=== PATIENT | male | born 1960 | race Caucasian/White ===

== ENCOUNTER → 2020-07-29 10:53 | Outpatient (BNVA) | payer MEDICARE, MEDICAID, SELFPAY | PROVIDERS: Visit Provider Nurse Practitioner | DX: E11.65 Type 2 diabetes mellitus with hyperglycemia (principal) | CPT/HCPCS: 80053; 80061; 81000; 82043; 83036 ==

== ENCOUNTER 2020-12-04 11:12 | Emergency (ER) | payer MEDICARE, MEDICAID, SELFPAY ==
[2020-12-04 11:15] VITALS: BP 151/77; PULSE 70; RESP 18; TEMP 36.8; O2SAT 96; BMI 27.6
--- NOTE | 2020-12-04 11:17 | XR_ITS ---
WS: [id number] Left knee, 3 views, 12/04/2020 Clinical Data: injury Comparison: Left knee, 03/28/2011. Findings: No fractures or dislocations are seen. The joint spaces are normal. The patella is intact. The soft t issues are unremarkable. There is a spur of the anterior superior patella. XR/XR knee LT 3V* [id number] Impression: Anterior superior left patellar spur.
[2020-12-04 11:20] VITALS: BP 151/77; PULSE 62; RESP 16; O2SAT 97
--- NOTE | 2020-12-04 11:30 | PC.NURSE ---
XR performed in VF area, pt placed back in WR.
--- NOTE | 2020-12-04 11:32 | ED_ITS ---
HPI - Extremity Injury (Lower) General: Chief Complaint: Extremity Injury, Lower Stated Complaint: L KNEE PAIN/INJURY Time Seen by Provider: 12/04/20 11:31 Source: patient Mode of arrival: ambulatory Limitations: no limitations History of Present Illness: HPI Narrative: Patient is a 60-year-old male who presents to ED today for evaluation of his left knee pain. Patient tells me approximately 4 days ago he twisted and fell onto the knee. He has experienced pain in the joint since. Patient has been ambulatory with a mild limp. He has no other complaints at this time. No other injury sustained during the fall. He has not noticed any swelling or color/temperature changes to the extremity. MD complaint: knee injury Onset (ago): day(s) Place: home Severity: mild Relieving factors: immobilization Exacerbating factors: weight bearing, movement and palpation Context: fall, direct blow and other (twisting) Associated symptoms: Reports no associated symptoms Other symptoms: none Review of Systems Musc: Reports: joint pain (L knee); Denies: joint swelling Neuro: Denies: numbness in extremities or sensory changes PFS ED PFSH: Medical History (Updated 12/04/20 @ 11:51 by ROMMEL Beckwith) COPD (chronic obstructive pulmonary disease) Insomnia Moderate COPD (chronic obstructive pulmonary disease) Neuropathy Personal history of nicotine dependence Type 2 diabetes mellitus with hyperglycemia Surgical History (Updated 07/29/20 @ 10:52 by LAURA Vale) 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, 2018 History of knee surgery Right 2000 and 2009 Family History Other Dementia Diabetes Hypertension Stroke Denies family history of Bleeding disorder Cancer Social History Smoking and tobacco status: current every day smoker Second hand smoke exposure: Yes Smoking risk assessment/counseling performed?: Yes Alcohol intake: never Desire information about alcohol rehabilitation?: No Counseling given: No Desire information about substance/drug rehabilitation?: No Counseling given: No Adopted: No Caregiver/support person: No Lives independently: Yes Household members: spouse Housing: House Marital status: Number of children: 2 service: No Current occupational status: retired and disabled History of recent travel: No Current gender identity: Male Physical Exam Const: COMMON NORMALS: no acute distress, average body habitus, patient oriented x3, no limitations, healthy appearing, alert and well nourished Extremity: GENERAL: Yes normal exam except as noted OTHER: TTP L lateral joint line; no laxity noted; no effusion; NV intact; no swelling to joint or extremity noted; no redness/warmth; no calf tenderness Neuro: COMMON NORMALS: patient oriented x3 SENSORIUM/ORIENTATION: Yes alert Course Vital Signs: Vital signs: Vital Signs Temperature 98.2 F 12/04/20 11:15 Pulse Rate 62 12/04/20 11:20 Respiratory Rate 16 12/04/20 11:20 Blood Pressure 151/77 12/04/20 11:20 Pulse Oximetry 97 12/04/20 11:20 MDM - Extremity Injury (Lower) Imaging Data^: XR L knee: Radiologist's impression: [address] [address] XRay Report Signed Patient: Walt Daugherty Unit #: [id number] : 1960 Age/Sex: 60 / M ADM Date: 12/04/20 Loc: ER Room/Bed: Attending Dr: Ordering Provider/Ordering MD: Lise Miramontes Date of Service: 12/04/20 Procedure(s): XR knee LT 3V* [id number] Accession Number(s): [id number] Report Number: [id number] WS: [id number] Left knee, 3 views, 12/04/2020 Clinical Data: injury Comparison: Left knee, 03/28/2011. Findings: No fractures or dislocations are seen. The joint spaces are normal. The patella is intact. The soft tissues are unremarkable. There is a spur of the anterior superior patella. XR/XR knee LT 3V* [id number] Impression: Anterior superior left patellar spur. Dictated By: Micki Menchaca MD Signed By: Micki Menchaca MD Signed Date/Time: 12/04/20 1137 DD/ 1135 Discharge Plan Discharge Patient Disposition: Home Clinical Impression: Left knee injury Qualifiers: Encounter type: initial encounter Qualified Code(s): S89.92XA - Unspecified injury of left lower leg, initial encounter Condition: Stable Prescriptions: No Action albuterol sulfate [ProAir HFA] 90 mcg/actuation HFA aerosol inhaler 2 puff INHALATION QID Qty: 18 RF: 2 gabapentin 300 mg capsule 300 mg PO BID Qty: 60 RF: 2 Spiriva with HandiHaler 18 mcg capsule, w/inhalation device 1 cap INHALATION DAILY Qty: 30 RF: 2 trazodone 50 mg tablet 50 mg PO DAILY Qty: 30 RF: 2 glipizide 5 mg tablet extended release 24hr 5 mg PO DAILY Qty: 30 RF: 0 metformin 1,000 mg tablet 1,000 mg PO BID Qty: 60 RF: 0 pravastatin 40 mg tablet 40 mg PO DAILY Qty: 30 RF: 0 Discharge Orders: Discharge ED (Routine); Ordered 12/04/20 Ordered By: Lise Miramontes Referrals: Ventura Matt, MADELINC [Primary Care Provider] - Activity Restrictions/Additional Instructions: As discussed weight bearing as tolerated. You may use [id number] Tylenol as needed for your pain. Please follow-up with primary care in the next 1 to 2 weeks for continued pain for re-evaluation. Coding Level of Care Code ED Hide And Skin Fleshing Machine Operator for Nagi Morris
== END 2020-12-04 12:01 | disposition home or self-care (01) ==
PROVIDERS: Emergency Provider Physician Assistant; PCP Nurse Practitioner
DX: S89.92XA Unspecified injury of left lower leg, initial encounter (principal); W19.XXXA Unspecified fall, initial encounter; J44.9 Chronic obstructive pulmonary disease, unspecified; E11.40 Type 2 diabetes mellitus with diabetic neuropathy, unspecified; F17.210 Nicotine dependence, cigarettes, uncomplicated
CPT/HCPCS: 12345; 73562; 99282

== ENCOUNTER → 2020-12-17 14:38 | Outpatient (BNVA) | payer MEDICARE, MEDICAID, SELFPAY | PROVIDERS: PCP Nurse Practitioner; Visit Provider Nurse Practitioner | DX: M25.512 Pain in left shoulder (principal); E11.65 Type 2 diabetes mellitus with hyperglycemia; J44.9 Chronic obstructive pulmonary disease, unspecified; G62.9 Polyneuropathy, unspecified; G47.00 Insomnia, unspecified | CPT/HCPCS: 73030; 80053; 81000; 83036 ==

== ENCOUNTER → 2021-12-23 10:22 | Outpatient (BNVA) | payer MEDICARE, MEDICAID, SELFPAY | PROVIDERS: PCP Nurse Practitioner; Visit Provider Nurse Practitioner | DX: R63.4 Abnormal weight loss (principal); J44.9 Chronic obstructive pulmonary disease, unspecified; E11.65 Type 2 diabetes mellitus with hyperglycemia; Z12.5 Encounter for screening for malignant neoplasm of prostate | CPT/HCPCS: 80053; 80061; 81000; 82607; 83036; 85025; G0103 ==

== ENCOUNTER 2022-01-17 09:07 | Outpatient (CLI) | payer MEDICARE, MEDICAID, SELFPAY ==
--- NOTE | 2022-01-17 09:15 | CT_ITS ---
WS: [id number] CT CHEST, ABDOMEN, AND PELVIS TECHNIQUE: Contrast-enhanced CT of the chest, abdomen, and pelvis with coronal and sagittal reformatt ed images. CLINICAL INFORMATION: R63.4 - Abnormal weight loss COMPARISON: CT 4 24,013 DLP: 1261.[address] scans at [facility] use at least one of these dose optimization techniques: automated e xposure control; mA and/or kV adjustment per patient size (includes targeted exams where dose is matc hed to clinical indication); or iterative reconstruction. CT CHEST: Mild chronic emphysematous changes. No acute pulmonary infiltrates. No focal pneumonia or pleural flu id. Subsegmental atelectasis RIGHT upper lobe. Normal caliber thoracic aorta. Proximal main pulmonary arteries are normal. No mediastinal or hilar l ymphadenopathy. Calcified LEFT hilar lymph nodes. No axillary lymphadenopathy. Hypertrophic changes t horacic spine. 4 mm noncalcified nodule LEFT upper lobe. This is unchanged since 2013. CT ABDOMEN AND PELVIS: Grade 1 anterolisthesis L5 on S1 with chronic spondylolysis. Mild diffuse fatty infiltration of the l iver. Normal portal vein and splenic vein. Normal gallbladder. Normal spleen. Normal GE junction. Adr enal glands are normal. Normal renal parenchymal enhancement. No hydronephrosis. Mild fatty atrophy o f the pancreas. Tiny fat-containing umbilical hernia.Shotty periaortic and retroperitoneal lymph node s not pathologically enlarged. A few prominent inguinal lymph nodes with preservation of the fatty hi lum. Normal celiac and SMA. Normal caliber abdominal aorta. Enlarged prostate with calcification measuring 4.9 CM. Small cystocele. Normal sigmoid colon. No evidence of high-grade small or large bowel obstru ction. Mild disc space narrowing L5-S1. Fat-containing LEFT inguinal hernia. CT/CT chest abd pel w con* IMPRESSION: 1. No suspicious findings in the chest. 2. Mild diffuse fatty infiltration of the liver. 3. Normal caliber abdominal aorta. 4. Prostate enlargement measuring 4.9 cm with thickening of the seminal vesicl es. Recommend correlation PSA. 5. Shotty periaortic and retroperitoneal lymph nodes not pathologically enlarg ed. A few prominent inguinal lymph nodes with preservation of the fatty hilum. 6. Grade 1 anterolisthesis L5 on S1 with chronic spondylolysis.
--- NOTE | 2022-01-17 09:31 | CT_ITS ---
WS: [id number] CT HEAD TECHNIQUE: Noncontrast CT of the head obtained from the skullbase to the vertex. CLINICAL INFORMATION: R63.4 - Abnormal weight loss COMPARISON: None. DLP: 889.[address] scans at [facility] use at least one of these dose optimization techniques: automated e xposure control; mA and/or kV adjustment per patient size (includes targeted exams where dose is matc hed to clinical indication); or iterative reconstruction. FINDINGS: No evidence of intracranial hemorrhage or mass effect. Ventricular system and basal cisterns are baldwin nt. Mild small vessel changes with mild parenchymal volume loss. Benign basal calcifications. Chronic lacunar infarcts or prominent perivascular spaces RIGHT basal ganglia. No extra-axial fluid collecti ons. No evidence of mass or mass effect. Paranasal sinuses and mastoid air cells are well aerated. .Normal visualized soft tissues. CT/CT head wo con* [id number] IMPRESSION: 1. No evidence of intracranial hemorrhage or mass effect. 2. Mild small vessel changes. Mild parenchymal volume loss. 3. No acute intracranial findings.
[2022-01-17] MEDS: iohexol 300 mg/mL 50 mL Btl PO (10:26)
[2022-01-17] MEDS: iodixanol 320 mg/mL 100mL Btl IV (11:16)
== END 2022-01-17 09:08 | disposition home or self-care (01) ==
PROVIDERS: PCP Nurse Practitioner; Visit Provider Nurse Practitioner
DX: M47.897 Other spondylosis, lumbosacral region (principal); N40.0 Benign prostatic hyperplasia without lower urinary tract symptoms; K76.0 Fatty (change of) liver, not elsewhere classified; J44.9 Chronic obstructive pulmonary disease, unspecified; R41.3 Other amnesia; R63.4 Abnormal weight loss
CPT/HCPCS: 70450; 71260; 74177

== ENCOUNTER 2022-03-16 06:27 | Day surgery (SDC) | payer MEDICARE, MEDICAID, SELFPAY ==
[2022-03-14 12:50] VITALS: BMI 24.4
[2022-03-16 06:54] VITALS: BP 119/74; PULSE 76; RESP 18; TEMP 36.3; O2SAT 95
[2022-03-16] MEDS: sodium chloride 0.9% 1,000 ML 30 ML IV (07:01)
--- NOTE | 2022-03-16 07:02 | W.PM.OPSFHP ---
Same Day Surgery H&P Indication for Procedure/HPI DATE OF PROCEDURE: March 16, 2022 CHIEF COMPLAINT/INDICATIONFOR SURGICAL PROCEDURE: colonoscopy PREOP DIAGNOSIS: diagnostic PLANNED PROCEDURE: Operation Date: 03/16/22 08:00 Proposed Procedures p Colonoscopy 43757/z12.11(Not Applicable) - Tristan Thompson MD Medications/Allergies* Allergies/Adverse Reactions Allergy/AdvReac Type Severity Reaction Status Date / Time No Known Allergies Allergy Verified 03/16/22 06:47 Current Medications: Generic Name Dose Route Start Last Admin Trade Name Freq PRN Reason Stop Dose Admin Sodium Chloride 1,000 mls @ 30 mls/hr 03/16/22 06:45 03/16/22 07:01 Sodium Chloride 0.9% IV 03/17/22 06:44 30 mls/hr .Q24H JHONNY Administration Pertinent History/Comorbid Conditions* Medical History (Updated 12/12/20 @ 00:01 by ) COPD (chronic obstructive pulmonary disease) Insomnia Moderate COPD (chronic obstructive pulmonary disease) Neuropathy Personal history of nicotine dependence Type 2 diabetes mellitus with hyperglycemia Surgical History (Updated 07/29/20 @ 10:52 by VALENCIA Vale-C) 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, 2018 History of knee surgery Right 2000 and 2009 Family History (Updated 07/29/20 @ 10:04 by HUGO Parker) Diabetes Dementia Hypertension Stroke Denies family history of Bleeding disorder Cancer Social History Smoking and tobacco status: current every day smoker Second hand smoke exposure: Yes Smoking risk assessment/counseling performed?: Yes Alcohol intake: never Desire information about alcohol rehabilitation?: No Counseling given: No Desire information about substance/drug rehabilitation?: No Counseling given: No Adopted: No Caregiver/support person: No Lives independently: Yes Household members: spouse Housing: House Marital status: Number of children: 2 service: No Current occupational status: retired and disabled History of recent travel: No Current gender identity: Male Pertinent Exam Findings alert, oriented x 3 and regular rate & rhythm Recommendations Surgery/Procedure today Coding Level of Care Code Acute Slope Hoist Operator for Nagi Morris
--- NOTE | 2022-03-16 07:58 | ANES.PREANE2 ---
Pre-Anesthetic Assessment Height/Weight: Height 1.8 m Weight 79.379 kg Temp Pulse Resp BP Pulse Ox 97.3 F L 76 18 119/74 95 03/16/22 06:54 03/16/22 06:54 03/16/22 06:54 03/16/22 06:54 03/16/22 06:54 Preop Diagnosis: diagnostic Operation Date: 03/16/22 08:00 Proposed Procedures p Colonoscopy 13196/z12.11(Not Applicable) - Tristan Thompson MD Familial anesthetic complications: none Was Beta Janice taken within 24 hours: N/A Was Clonidine taken within 24 hours: N/A Last intake: Intake Last Liquid Date 03/15/22 Last Liquid Time 00:00 Last Solid Date 03/14/22 Last Solid Time 00:00 Social Tobacco and No alcohol Exam alert, oriented x 3 and regular rate & rhythm rhonchi Airway Submandibular: within normal limits Cervical ROM: within normal limits Mallampati: Class II Dentition: false Pulmonary Chronic Obstructive Pulmonary Disease CV/HEM Hypertension Metabolic Diabetes Mellitus and Hyperlipidemia Neuropsych Neuropathy Anesthetic Plan ASA status: 3 Anesthesia: MAC Medications/Allergies Home Medications Medication Instructions Recorded Confirmed Last Taken Type albuterol sulfate 90 mcg/actuation 2 puff INHALATION QID #18 gm 12/17/20 03/16/22 03/15/22 Rx aerosol inhaler (ProAir HFA) gabapentin 300 mg capsule 300 mg PO BID #60 cap 12/17/20 03/16/22 03/15/22 Rx tiotropium bromide 18 mcg capsule 1 cap INHALATION DAILY #30 inh 12/17/20 03/16/22 03/15/22 Rx with inhalation device (Spiriva with HandiHaler) trazodone 50 mg tablet 50 mg PO DAILY #30 tab 12/17/20 03/16/22 03/13/22 Rx empagliflozin 10 mg tablet 10 mg PO QAM #30 tab 12/24/20 03/16/22 03/15/22 Rx (Jardiance) glipizide 10 mg tablet, extended 10 mg PO DAILY #30 tab 12/24/20 03/16/22 03/15/22 Rx release 24 hr metformin 500 mg tablet,extended 2,000 mg PO DAILY #120 tab 01/04/22 03/16/22 03/15/22 Rx release 24 hr rosuvastatin 5 mg tablet (Crestor) 5 mg PO DAILY #30 tab 01/04/22 03/16/22 03/15/22 Rx Allergies Allergy/AdvReac Type Severity Reaction Status Date / Time No Known Allergies Allergy Verified 03/16/22 06:47 Current Medications Generic Name Dose Route Start Last Admin Trade Name Stephanie PRN Reason Stop Dose Admin Sodium Chloride 1,000 mls @ 30 mls/hr 03/16/22 06:45 03/16/22 07:01 Sodium Chloride 0.9% IV 03/17/22 06:44 30 mls/hr .Q24H JHONNY Administration PFSH Anesthesia Medical History COPD (chronic obstructive pulmonary disease) Insomnia Moderate COPD (chronic obstructive pulmonary disease) Neuropathy Personal history of nicotine dependence Type 2 diabetes mellitus with hyperglycemia Surgical History 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, 2018 History of knee surgery Right 2000 and 2009 Family History Other Dementia Diabetes Hypertension Stroke Denies family history of Bleeding disorder Cancer Social History Smoking and tobacco status: current every day smoker Second hand smoke exposure: Yes Smoking risk assessment/counseling performed?: Yes Alcohol intake: never Desire information about alcohol rehabilitation?: No Counseling given: No Desire information about substance/drug rehabilitation?: No Counseling given: No Adopted: No Caregiver/support person: No Lives independently: Yes Household members: spouse Housing: House Marital status: Number of children: 2 service: No Current occupational status: retired and disabled History of recent travel: No Current gender identity: Male Data Anesthesia Cardiac Studies: No Data to Display
[2022-03-16 08:27] VITALS: BP 103/62; PULSE 61; RESP 12; TEMP 36.1; O2SAT 98
--- NOTE | 2022-03-16 08:28 | ANE.PACU2 ---
Inpatient post-anesthesia follow up: Airway intact: Yes Vital signs: Temperature 97.3 F Pulse Rate 76 Respiratory Rate 18 Blood Pressure 119/74 Pulse Oximetry 95 Oxygen Delivery Me thod Room Air Oxygen Flow Rate Fraction of Inspir ed Oxygen Hydration adequate: Yes Nausea and vomiting: No Pain level: 1 Mental status: Baseline
[2022-03-16 08:37] VITALS: BP 119/69; PULSE 66; RESP 16; O2SAT 96
== END 2022-03-16 08:48 | disposition home or self-care (01) ==
PROVIDERS: PCP Nurse Practitioner; Visit Provider Surgery
PROC: 0DJD8ZZ Inspection of Lower Intestinal Tract, Via Natural or Artificial Opening Endoscopic (ICD-10-PCS; CPT 45378; principal; 2022-03-16 08:00)
DX: Z12.11 Encounter for screening for malignant neoplasm of colon (principal); K64.8 Other hemorrhoids; D12.4 Benign neoplasm of descending colon; D12.5 Benign neoplasm of sigmoid colon; K57.30 Diverticulosis of large intestine without perforation or abscess without bleeding; J44.9 Chronic obstructive pulmonary disease, unspecified; I10 Essential (primary) hypertension; E78.5 Hyperlipidemia, unspecified; E11.40 Type 2 diabetes mellitus with diabetic neuropathy, unspecified; Z79.84 Long term (current) use of oral hypoglycemic drugs; E11.65 Type 2 diabetes mellitus with hyperglycemia; F17.210 Nicotine dependence, cigarettes, uncomplicated
CPT/HCPCS: 45385; 88305; J2704; J7030

== ENCOUNTER → 2022-03-29 09:12 | Outpatient (BNVA) | payer MEDICARE, MEDICAID, SELFPAY | PROVIDERS: PCP Nurse Practitioner; Visit Provider Surgery | DX: Z09 Encounter for follow-up examination after completed treatment for conditions other than malignant neoplasm (principal) | CPT/HCPCS: 99212 ==

== ENCOUNTER 2022-11-17 18:30 | Emergency (ER) | payer MEDICARE, MEDICAID, SELFPAY ==
--- NOTE | 2022-11-17 18:34 | XRR_ITS ---
PROCEDURE INFORMATION: Exam: XR Chest Exam date and time: 11/17/2022 6:46 PM Age: 62 years old Clinical indication: Other: Weakness TECHNIQUE: Imaging protocol: Radiologic exam of the chest. Views: 1 view. COMPARISON: CT chest abd pel w con* 01/17/2022 10:53 AM FINDINGS: Lungs: Lungs are clear bilaterally. Pleural spaces: No pleural effusion. No pneumothorax. Heart/Mediastinum: Stable mild enlargement of the cardiac silhouette. Mediastinal contours are unremarkable. Vasculature: Stable vascular calcifications in the aorta. Bones/joints: Unremarkable for age. XR/XR chest 1V portable [id number] IMPRESSION: 1. No acute cardiopulmonary process. 2. Incidental/nonacute findings are listed in the report.
--- NOTE | 2022-11-17 18:34 | ECG_ITS ---
[facility] Test Date: 2022-11-17 Pat Name: Walt Daugherty Department: Room: Gender: Male Service Worker: : 1960 Requested By: Jose Vivar Order Number: [id number] Mata MD: Irene Grey M.D. Measurements Intervals [place] Rate: 70 P: 70 AR: 175 QRS: 69 QRSD: 106 T: 72 QT: 361 QTc: 391 Interpretive Statements SINUS RHYTHM Compared to ECG 02/13/2016 22:09:57 No significant changes Electronically Signed On 11-18-2022 16:59:08 INDUSTRIAL MAINTENANCE TECH by Irene Grey M.D. [id number]
[2022-11-17 18:36] VITALS: BP 132/77; PULSE 81; RESP 18; TEMP 37.3; O2SAT 97; BMI 23.4
[2022-11-17 19:24] LABS: Basophils % 0.7 %; Eosinophils % 0.6 %; Hematocrit 49.3 % (42.0-52.0); Hemoglobin 16.6 g/dL (11.7-16.6); Lymphocytes # 1.4 10^3/uL (0.8-4.8); Lymphocytes % 26.6 %; Mean Corpuscular HGB Conc 33.7 g/dL (30.0-36.0); Mean Corpuscular Hemoglobin 29.9 pg (28.0-34.0); Mean Corpuscular Volume 88.7 fl (80-94); Mean Platelet Volume 9.4 fL (7.4-10.4); Monocytes # 0.5 10^3/uL (0.2-0.9); Monocytes % 8.9 %; Neutrophils # 3.38 10^3/uL (1.8-7.7); Nucleated Red Blood Cells % 0 %; Platelet Count 190 10^3/cmm (130-400); Red Blood Count 5.56 10^6/uL (4.1-5.3); Red Cell Distribution Width 13.1 % (12.1-15.1); White Blood Count 5.4 10^3/uL (4.0-10.0)
--- NOTE | 2022-11-17 19:52 | ED_ITS ---
HPI - Fever General: Chief Complaint: Fever Stated Complaint: weakness Time Seen by Provider: 11/17/22 19:36 Source: patient Mode of arrival: ambulatory History of Present Illness: 62-year-old male presents emergency room complaini ng of body aches chills sweats fever for the last 4 days temp up to 100.8 he has not had much of a cough or shortness of breath though. No vomiting no diarrhea no abdominal pain no chest pain no dysuria urgency or frequency. He has peripheral neuropathy in his lower extremities he states this feels different. MD elicited complaint: fever Pertinent past history: diabetes Onset (ago): day(s) Exacerbating factors: nothing Relieving factors: nothing Associated symptoms: Deny abdominal pain, flank pain, chills, chest pain, co nfusion, cough, diarrhea, dysuria, extremity pain, headache(s), myalgias, nasal congestion, nausea, night sweats, rash, rhinorrhea, short of breath, sinus pain, stiffness, sore throat, vomiting or weight loss Treatments prior to arrival fever: none Review of Systems Const: Reports: fever(s); Denies: chills or night sweats ENMT: Denies: nasal congestion or sinus pain Card: Denies: chest pain, palpitations, irregular heart rhythm or edema Resp: Reports: dyspnea and non-productive cough; Denies: productive cough GI: Denies: abdominal pain, nausea, vomiting or diarrhea : Denies: flank pain, difficulty urinating, dysuria, urinary frequency or urinary urgency Musc: Denies: extremity pain Skin/Breast: Denies: rash or pruritus Neuro: Denies: headache(s) or confusion PFSH ED PFSH: Medical History COPD (chronic obstructive pulmonary disease) Insomnia Moderate COPD (chronic obstructive pulmonary disease) Neuropathy Personal history of nicotine dependence Type 2 diabetes mellitus with hyperglycemia Surgical History 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, 2018 History of knee surgery Right 2000 and 2009 Status post colonoscopy (03/16/22) Family History Other Dementia Diabetes Hypertension Stroke Denies family history of Bleeding disorder Cancer Social History Smoking and tobacco status: current every day smoker Second hand smoke exposure: Yes Smoking risk assessment/counseling performed?: Yes Alcohol intake: never Desire information about alcohol rehabilitation?: No Counseling given: No Desire information about substance/drug rehabilitation?: No Counseling given: No Adopted: No Caregiver/support person: No Lives independently: Yes Household members: spouse Housing: House Marital status: Number of children: 2 service: No Current occupational status: retired and disabled History of recent travel: No Current gender identity: Male Physical Exam Const: COMMON NORMALS: no acute distress GENERAL APPEARANCE: cooperative and comfortable ORIENTATION/CONSCIOUSNESS: Yes awake, Yes oriented to person, Yes oriented to place and Yes oriented to time HENMT: COMMON NORMALS: normocephalic, atraumatic, hearing grossly normal bilaterally, external ears normal, EAC's normal, TM's normal bilaterally, Normal nasal mucous membranes and turbinates present, moist oral mucous membranes and oropharynx normal HEAD & SCALP: normocephalic and atraumatic NOSE: Normal nasal mucous membranes and turbinates present EXTERNAL EAR: Yes external ears normal EXTERNAL AUDITORY CANAL: EAC's normal TYMPANIC MEMBRANE: TM's normal bilaterally Eye: COMMON NORMALS: Equal, round and reactive pupils present, EOMs intact bilaterally, conjunctivae normal and no scleral icterus CONJUNCTIVA: Yes conjunctivae normal PUPIL: Yes Equal, round and reactive pupils present Neck/C-Spine: COMMON NORMALS: full ROM, no lymphadenopathy, supple and no JVD Resp: COMMON NORMALS: normal respiratory effort, No retractions, No use of accessory muscles and clear to auscultation bilaterally AUSCULTATION: clear to auscultation bilaterally Cardio: COMMON NORMALS: no JVD, regular rate, regular rhythm and No murmurs present (Cardio) RATE: regular rate RHYTHM: regular rhythm GI: COMMON NORMALS: Soft to palpation and No hepatosplenomegaly present AUSCULTATION: Yes normoactive bowel sounds PALPATION: Yes Soft to palpation, No Tenderness to palpation present (GI), No Guarding due to palpation present (GI) and Yes No hepatosplenomegaly present Extremity: COMMON NORMALS: normal to inspection, capillary refill normal, no clubbing, cyanosis or edema, no calf tenderness and no pedal edema Neuro: SENSORIUM/ORIENTATION: Yes oriented to person, Yes oriented to place and Yes oriented to time Skin: COMMON NORMALS: no rashes or lesions noted GENERAL SKIN EXAM: no rashes or lesions noted Course Vital Signs: Vital signs: Vital Signs Temperature 99.2 F 11/17/22 18:36 Pulse Rate 75 11/17/22 21:36 Respiratory Rate 16 11/17/22 21:36 Blood Pressure 125/63 11/17/22 21:36 Pulse Oximetry 95 11/17/22 21:36 Oxygen Delivery Me thod 11/17/22 18:36 MDM - Fever Medical Decision Making Labs and imaging reviewed. No signs of acute pneumonia. Oxygenation normal on room air he does have a low-grade fever all typical of COVID. To continue. Patient still within the timeframe to initiate treatment with Paxlovid. 5-day course Paxlovid prescribed discussed risk benefits of the medications and the expected usual course. Also reviewed that currently it is considered emergency authorization use for COVID Medical Records I reviewed the patient's medical records. Lab Data I reviewed the patient's lab results. 11/17/22 19:10 11/17/22 19:10 Radiology Impressions Chest X-Ray 11/17/22 18:34 IMPRESSION: 1. No acute cardiopulmonary process. 2. Incidental/nonacute findings are listed in the report. Laboratory Results WBC 5.4 10^3/uL (4.0-10.0) 11/17/22 19:10 RBC 5.56 10^6/uL (4.1-5.3) H 11/17/22 19:10 Hgb 16.6 g/dL (11.7-16.6) 11/17/22 19:10 Hct 49.3 % (42.0-52.0) 11/17/22 19:10 MCV 88.7 fl (80-94) 11/17/22 19:10 MCH 29.9 pg (28.0-34.0) 11/17/22 19:10 MCHC 33.7 g/dL (30.0-36.0) 11/17/22 19:10 RDW 13.1 % (12.1-15.1) 11/17/22 19:10 Plt Count 190 10^3/cmm (130-400) 11/17/22 19:10 MPV 9.4 fL (7.4-10.4) 11/17/22 19:10 Neut % (Auto) 63.0 % 11/17/22 19:10 Lymph % (Auto) 26.6 % 11/17/22 19:10 [place] % (Auto) 8.9 % 11/17/22 19:10 Eos % (Auto) 0.6 % 11/17/22 19:10 Baso % (Auto) 0.7 % 11/17/22 19:10 Neut # (Auto) 3.38 10^3/uL (1.8-7.7) 11/17/22 19:10 Lymph # (Auto) 1.4 10^3/uL (0.8-4.8) 11/17/22 19:10 [place] # (Auto) 0.5 10^3/uL (0.2-0.9) 11/17/22 19:10 Eos # (Auto) 0.0 10^3/uL (0.0-0.8) 11/17/22 19:10 Baso # (Auto) 0.0 10^3/uL (0.0-0.1) 11/17/22 19:10 Nucleated RBC % (auto) 0 % 11/17/22 19:10 Nucleated RBCs # 0.0 /100WBC 11/17/22 19:10 Sodium 135 mmol/L (136-145) L 11/17/22 19:10 Potassium 4.0 mmol/L (3.5-5.1) 11/17/22 19:10 Chloride 100 mmol/L (98-107) 11/17/22 19:10 Carbon Dioxide 26 mmol/L (22-29) 11/17/22 19:10 Anion Gap 13.0 (5-19) 11/17/22 19:10 BUN 13 mg/dL (8-23) 11/17/22 19:10 Creatinine 0.7 mg/dL (0.7-1.2) 11/17/22 19:10 GFR Calculation 113.9 mL/min (90-130) 11/17/22 19:10 Glucose 293 mg/dL (65-115) H 11/17/22 19:10 Calculated Osmolality 291 mOsm/kg (285-295) 11/17/22 19:10 Calcium 9.2 mg/dL (8.5-10.5) 11/17/22 19:10 Total Bilirubin 0.3 mg/dL (0.15-1.2) 11/17/22 19:10 AST 20 U/L (0-40) 11/17/22 19:10 ALT 23 U/L (0-41) 11/17/22 19:10 Alkaline Phosphatase 113 U/L (40-130) 11/17/22 19:10 Total Protein 7.5 g/dL (6.6-8.7) 11/17/22 19:10 Albumin 3.9 g/dL (3.5-5.2) 11/17/22 19:10 Globulin 3.6 g/dL (1.3-4.6) 11/17/22 19:10 Urine Color Yellow (Yellow) 11/17/22 19:57 Urine Appearance Clear (CLEAR) 11/17/22 19:57 Urine pH 5 (5-7) 11/17/22 19:57 Ur Specific Samson 1.025 (1.005-1.030) 11/17/22 19:57 Urine Protein Neg (Negative) 11/17/22 19:57 Urine Glucose (UA) 4+ (Normal) H 11/17/22 19:57 Urine Ketones Negative (Negative) 11/17/22 19:57 Urine Blood Neg (Negative) 11/17/22 19:57 Urine Nitrate Negative (Negative) 11/17/22 19:57 Urine Bilirubin Neg (Negative) 11/17/22 19:57 Urine Urobilinogen Norm mg/dL (Negative) 11/17/22 19:57 Ur Leukocyte Esterase Negative (Negative) 11/17/22 19:57 Coronavirus 229E (PCR) Cancelled 11/17/22 20:10 Influenza Type A Ag negative (Negative) 11/17/22 20:10 Influenza Type B Ag negative (Negative) 11/17/22 20:10 SARS-CoV-2 (PCR) Cancelled 11/17/22 20:10 SARS-CoV-2 Ag (Rapid) Positive (Negative) H 11/17/22 20:00 Discharge Plan Discharge Patient Disposition: Home Clinical Impression: COVID-19 Condition: Stable Prescriptions: New Paxlovid (EUA) 300 mg (150 mg x 2)-100 mg tablets,dose pack See Rx Instructions .ROUTE .COMPLEX Qty: 30 0RF Rx Instructions: take TWO 150 mg tablets of nirmatrelvir with ONE 100 mg tablet of ritonavir twice daily for 5 days No Action albuterol sulfate [ProAir HFA] 90 mcg/actuation HFA aerosol inhaler 2 puff INHALATION QID Qty: 18 2RF gabapentin 300 mg capsule 300 mg PO BID Qty: 60 2RF Spiriva with HandiHaler 18 mcg capsule, w/inhalation device 1 cap INHALATION DAILY Qty: 30 2RF Rx Instructions: puncture 1 cap using device; one dose = 2 inhalations trazodone 50 mg tablet 50 mg PO DAILY Qty: 30 2RF rosuvastatin [Crestor] 5 mg tablet 5 mg PO DAILY Qty: 30 2RF metformin 500 mg tablet extended release 24 hr 2,000 mg PO DAILY Qty: 120 2RF Rx Instructions: use metformin ER Jardiance 10 mg tablet 10 mg PO QAM Qty: 30 2RF glipizide 10 mg tablet extended release 24hr 10 mg PO DAILY Qty: 30 2RF Rx Instructions: Dose increase Discharge Orders: Discharge ED (Routine); Ordered 11/17/22 Ordered By: Patricio Harmon Referrals: Frank Storm MD [Primary Care Provider] - Discharge Diet: Usual diet Discharge Activity: Increase activity as tolerated Patient Instructions: COVID-19 (Coronavirus Disease 2019) (ED), Opioid Safety, Pain Management Activity Restrictions/Additional Instructions: You were seen today with skin sensitivity fatigue weakness chills and fever. Your flu swabs were negative which are COVID both positive. Recommend that you self quarantine until released by the health department. You are prescribed Paxlovid take as directed on the package. This will suppress the virus but does not totally clear it it just makes it easier for your body to manage. Follow-up with your primary care doctor as needed return to the emergency room if you have significant worsening in breathing Coding Level of Care Code ED Bi Developer for Nagi Morris
[2022-11-17 19:53] LABS: Alanine Aminotransferase 23 U/L (0-41); Albumin Level 3.9 g/dL (3.5-5.2); Alkaline Phosphatase 113 U/L (40-130); Aspartate Amino Transferase 20 U/L (0-40); Blood Urea Nitrogen 13 mg/dL (8-23); Calcium 9.2 mg/dL (8.5-10.5); Carbon Dioxide 26 mmol/L (22-29); Chloride 100 mmol/L (98-107); Creatinine Clr Calc Pharmacy 115.5941; Globulin 3.6 g/dL (1.3-4.6); Glomerular Filtration Rate 113.9 mL/min (90-130); Glucose 293 mg/dL (65-115); Osmolality Calculated 291 mOsm/kg (285-295); Sodium 135 mmol/L (136-145); Total Bilirubin 0.3 mg/dL (0.15-1.2); Total Protein 7.5 g/dL (6.6-8.7)
[2022-11-17 20:08] VITALS: BP 131/68; PULSE 70; RESP 16; O2SAT 92
[2022-11-17 20:18] LABS: Add Urine Microscopic? NO; Charge for UA Resulting for Rev
[2022-11-17 20:21] LABS: Glucose Urine UA 4+ (Normal); Protein Urine Neg (Negative); Specific Gravity, Urine 1.025 (1.005-1.030); Urine Appearance Clear (CLEAR); Urine Color Yellow (Yellow); pH Urine 5 (5-7)
[2022-11-17 20:22] LABS: Bilirubin Urine Neg (Negative); Blood Urine Neg (Negative); Ketones Urine Negative (Negative); Leukocyte Esterase Urine Negative (Negative); Nitrate Urine Negative (Negative); Urobilinogen Urine Norm (Negative)
[2022-11-17 20:35] LABS: Influenza A by IFA negative (Negative); Influenza B by IFA negative (Negative)
[2022-11-17 21:36] VITALS: BP 125/63; PULSE 75; RESP 16; O2SAT 95
[2022-11-18 02:18] LABS: SARS Covid-2 Antigen Positive (Negative)
== END 2022-11-17 21:38 | disposition home or self-care (01) ==
PROVIDERS: Emergency Medicine; Emergency Provider Family Medicine; PCP Family Medicine
DX: U07.1 COVID-19 (principal); Z79.84 Long term (current) use of oral hypoglycemic drugs; J44.9 Chronic obstructive pulmonary disease, unspecified; E11.9 Type 2 diabetes mellitus without complications; F17.210 Nicotine dependence, cigarettes, uncomplicated
CPT/HCPCS: 36415; 71045; 80053; 81003; 85025; 87426; 87804; 93005; 99285

== ENCOUNTER 2023-01-09 12:47 | Emergency (ER) | payer MEDICARE, MEDICAID, SELFPAY ==
[2023-01-09 12:51] VITALS: BP 128/75; PULSE 75; RESP 16; TEMP 36.7; O2SAT 96; BMI 23.0
--- NOTE | 2023-01-09 13:18 | XR_ITS ---
WS: [id number] Chest with right rib detail, 3 views, 01/09/2023 Clinical Data: pain/trauma Comparison: Portable chest, 11/17/2022 Findings: The lungs show no nodules, masses, or effusions. The heart is normal. No pneumonia or pneumothorax is seen. The aortic arch and descending thoracic aorta show minimal tortuosity The ribs are intact. No rib fractures seen. No subcutaneous emphysema is present. XR/XR ribs RT mn 3V w [id number] [id number] Impression: Negative chest with right rib detail.
--- NOTE | 2023-01-09 13:19 | W.ED.CHESTPA ---
HPI - Chest Pain General: Chief Complaint: Abdominal Pain Stated Complaint: Rib Pain Time Seen by Provider: 01/09/23 13:13 Source: patient Mode of arrival: ambulatory Limitations: no limitations History of Present Illness: Patient is a 62-year-old male who presents to ED today with a complaint of right rib pain that began about a month ago. Patient states he was working on a truck and was leaned over the truck bed when he heard a pop to his right ribs. Patient states he has experienced pain since. He has been wrapping his chest to help with discomfort. Family states now he is complaining of some shortness of breath. MD complaint: chest pain Onset (ago): week(s) Timing of current episode: constant Prior episodes: No Pain location: right chest and lateral Pain radiation: none Severity: moderate Quality: sharp Relieving factors: other (wrapping chest) Exacerbating factors: other (deep breath, cough, palpation, movement) Associated symptoms: Reports no associated symptoms and dyspnea; Deny abdominal pain, fever(s), nausea, palpitations, syncope or vomiting Treatment prior to arrival: none Risk Factors: Coronary artery disease risk factors: diabetes and smoking history Thoracic aortic dissection risk factors: none Review of Systems Const: Denies: fever(s), chills, body aches, fatigue or malaise Card: Reports: chest pain (R rib pain); Denies: palpitations, irregular heart rhythm, edema, swelling of feet/ankles, lightheadedness, syncope, pre-syncope, dyspnea on exertion, orthopnea, leg pain with exertion or acrocyanosis Resp: Reports: dyspnea and pain on inspiration; Denies: productive cough, non-productive cough, wheezing, stridor, change in phlegm color, hemoptysis or chest congestion GI: Denies: abdominal pain, nausea, vomiting or change in bowel habits Musc: Denies: neck pain or back pain PFS ED PFSH: Medical History COPD (chronic obstructive pulmonary disease) Insomnia Moderate COPD (chronic obstructive pulmonary disease) Neuropathy Personal history of nicotine dependence Type 2 diabetes mellitus with hyperglycemia Surgical History 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, 2018 History of knee surgery Right 2000 and 2009 Status post colonoscopy (03/16/22) Family History Other Dementia Diabetes Hypertension Stroke Denies family history of Bleeding disorder Cancer Social History Smoking and tobacco status: current every day smoker Second hand smoke exposure: Yes Smoking risk assessment/counseling performed?: Yes Alcohol intake: never Desire information about alcohol rehabilitation?: No Counseling given: No Desire information about substance/drug rehabilitation?: No Counseling given: No Adopted: No Caregiver/support person: No Lives independently: Yes Household members: spouse Housing: House Marital status: Number of children: 2 service: No Current occupational status: retired and disabled Current gender identity: Male Physical Exam Const: COMMON NORMALS: no acute distress, average body habitus, patient oriented x3, no limitations, healthy appearing, alert and well nourished ORIENTATION/CONSCIOUSNESS: Yes awake, Yes oriented to person, Yes oriented to place and Yes oriented to time HENMT: COMMON NORMALS: normocephalic and atraumatic HEAD & SCALP: normal to inspection, normocephalic and atraumatic Chest: COMMONS NORMALS: normal inspection of the chest OTHER: chest is wrapped with ROGELIO wrap; TTP R anteriolateral ribs; no crepitus noted; palpation reproduces pts pain; no abdominal/RUQ tenderness present Resp: COMMON NORMALS: normal respiratory effort and clear to auscultation bilaterally AUSCULTATION: clear to auscultation bilaterally Cardio: COMMON NORMALS: regular rate and regular rhythm RATE: regular rate RHYTHM: regular rhythm GI: COMMON NORMALS: Normal to inspection, nondistended, normoactive bowel sounds present, Soft to palpation, non-tender, No hepatosplenomegaly present and no masses INSPECTION: Yes normal to inspection AUSCULTATION: Yes normoactive bowel sounds PALPATION: Yes Soft to palpation and Yes No hepatosplenomegaly present : COMMON NORMALS: Yes no CVA tenderness BLADDER/KIDNEY EXAM: Yes no CVA tenderness Back/Pelvis: COMMON NORMALS: no CVA tenderness, thoracic and lumbar spine normal to inspection, no thoracic nor lumbar tenderness and thoraco-lumbar ROM normal Neuro: LAURENCE COMA SCALE: document [facility] findings [place] coma scale eye opening: Spontaneous [place] coma scale verbal response: Orientated [place] coma scale motor response: Obey commands [place] coma scale total score: 15 COMMON NORMALS: patient oriented x3 and gait normal SENSORIUM/ORIENTATION: Yes alert, Yes oriented to person, Yes oriented to place and Yes oriented to time Skin: TRAUMA: no lacerations or abrasions Course Vital Signs: Vital signs: Vital Signs Temperature 98.1 F 01/09/23 12:51 Pulse Rate 75 01/09/23 12:51 Respiratory Rate 16 01/09/23 12:51 Blood Pressure 128/75 01/09/23 12:51 Pulse Oximetry 96 01/09/23 12:51 Oxygen Delivery Me thod 01/09/23 12:51 MDM - Chest Pain Medical Decision Making XR R ribs/CXR negative. Recommend not wrapping his chest. Will provide some pain medication to help him over the next week or so. Recommend follow-up with primary care in 1 to 2 weeks if symptoms do not seem to be improving. Lab Data Radiology Impressions Ribs X-Ray 01/09/23 13:18 Impression: Negative chest with right rib detail. Discharge Plan Discharge Patient Disposition: Home Clinical Impression: Contusion of rib on right side Qualifiers: Encounter type: initial encounter Qualified Code(s): S20.211A - Contusion of right front wall of thorax, initial encounter Condition: Stable Prescriptions: New tramadol 50 mg tablet 50 mg PO Q6H PRN (Reason: pain) Qty: 14 0RF No Action albuterol sulfate [ProAir HFA] 90 mcg/actuation HFA aerosol inhaler 2 puff INHALATION QID Qty: 18 2RF gabapentin 300 mg capsule 300 mg PO BID Qty: 60 2RF Spiriva with HandiHaler 18 mcg capsule, w/inhalation device 1 cap INHALATION DAILY Qty: 30 2RF Rx Instructions: puncture 1 cap using device; one dose = 2 inhalations trazodone 50 mg tablet 50 mg PO DAILY Qty: 30 2RF rosuvastatin [Crestor] 5 mg tablet 5 mg PO DAILY Qty: 30 2RF metformin 500 mg tablet extended release 24 hr 2,000 mg PO DAILY Qty: 120 2RF Rx Instructions: use metformin ER Jardiance 10 mg tablet 10 mg PO QAM Qty: 30 2RF glipizide 10 mg tablet extended release 24hr 10 mg PO DAILY Qty: 30 2RF Rx Instructions: Dose increase Paxlovid (EUA) 300 mg (150 mg x 2)-100 mg tablets,dose pack See Rx Instructions .ROUTE .COMPLEX Qty: 30 0RF Rx Instructions: take TWO 150 mg tablets of nirmatrelvir with ONE 100 mg tablet of ritonavir twice daily for 5 days Discharge Orders: Discharge ED (Routine); Ordered 01/09/23 Ordered By: Lise Miramontes Referrals: Frank Storm MD [Primary Care Provider] - Patient Instructions: Rib Contusion (ED) Coding Level of Care Code ED Medicare Compliance Auditor for Nagi Morris
== END 2023-01-09 14:09 | disposition home or self-care (01) ==
PROVIDERS: Emergency Provider Physician Assistant; PCP Family Medicine
DX: S20.211A Contusion of right front wall of thorax, initial encounter (principal); Z79.84 Long term (current) use of oral hypoglycemic drugs; J44.9 Chronic obstructive pulmonary disease, unspecified; E11.9 Type 2 diabetes mellitus without complications; F17.210 Nicotine dependence, cigarettes, uncomplicated; W22.8XXA Striking against or struck by other objects, initial encounter
CPT/HCPCS: 71101; 99283

== ENCOUNTER → 2023-12-25 11:02 | Outpatient (BNVA) | payer MEDICARE, MEDICAID, SELFPAY | PROVIDERS: PCP Family Medicine; Visit Provider Nurse Practitioner Family | DX: Z12.5 Encounter for screening for malignant neoplasm of prostate (principal); U07.1 COVID-19; E11.65 Type 2 diabetes mellitus with hyperglycemia; G62.9 Polyneuropathy, unspecified | CPT/HCPCS: 80053; 80061; 82607; 82746; 83036; 84443; 85025; G0103 ==

== ENCOUNTER 2024-01-15 12:35 | Outpatient (CLI) | payer MEDICARE, MEDICAID, SELFPAY ==
--- NOTE | 2024-01-15 13:00 | CT_ITS ---
WS: [id number] LDCT LUNG CANCER SCREENING HISTORY: screening TECHNIQUE: Axial imaging performed from the apices to 1 cm below the costophrenic angles. Coronal and sagittal reformats are submitted with axial MIP series. All CT scans at [facility] use at least one of these dose optimization techniques: automated exposure control; mA and/or kV adjustment per patient size (includes targeted exams where dose is matched to clinical indication); or iterativ e reconstruction. DLP: 67.10 mGy.cm DIvol: Mean CTDIvol: 1.50 (mGy) COMPARISON: 01/17/2022, 03/06/2013 Diagnostic quality: Satisfactory Lungs: Bronchial thickening and bronchiectasis and adjacent groundglass attenuation in the medial inf erior RIGHT upper lobe. These changes abut the mediastinum. Some of these changes have been present o n the prior studies but progressed. Bronchial wall thickening and groundglass attenuation are progres sed. This is probably all chronic. There is mild pleural thickening and nodularity extending along th e minor fissure. Mild pulmonary hyperexpansion. Mild hazy attenuation throughout the lungs. Heart: Normal size heart with no pericardial effusion.. Other findings: Mild atherosclerosis aorta. Normal size pulmonary artery. Normal size aorta. No peric ardial or pleural effusion. No adrenal mass. IMPRESSION: CT/CT lung screening [id number] LUNG-RADS: 4A-Probably Suspicious FOLLOW UP: 3 Month LDCT OTHER FINDINGS (S MODIFIER): None. RIGHT upper lobe and RIGHT minor fissure nodularity. There are changes of bronc hiectasis and bronchial thickening. Although there is no discrete mass recommen d follow-up chest CT with IV contrast in 3 months.
== END 2024-01-15 12:36 | disposition home or self-care (01) ==
LOC: RAD 12:35
PROVIDERS: PCP Family Medicine; Visit Provider Nurse Practitioner Family
DX: Z12.2 Encounter for screening for malignant neoplasm of respiratory organs (principal); J47.9 Bronchiectasis, uncomplicated; R91.8 Other nonspecific abnormal finding of lung field; Z87.891 Personal history of nicotine dependence
CPT/HCPCS: 71271

== ENCOUNTER 2024-04-17 18:28 | Emergency (ER) | payer MEDICARE, MEDICAID, SELFPAY ==
[2024-04-17 18:36] VITALS: BP 101/56; PULSE 67; TEMP 36.7; O2SAT 96; BMI 23.8
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
[2024-04-17 18:53] VITALS: BP 115/56; PULSE 63; O2SAT 93
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
[2024-04-17] MEDS: HYDROcodone-acetaminophen 5-325 mg Tablet 1 TAB PO (19:07)
[2024-04-17 20:06] VITALS: BP 118/68; PULSE 60; RESP 18; O2SAT 94
== END 2024-04-17 20:06 | disposition home or self-care (01) ==
PROVIDERS: Emergency Provider Emergency Medicine; PCP Nurse Practitioner Family
DX: S00.03XA Contusion of scalp, initial encounter (principal); Z72.0 Tobacco use; J44.9 Chronic obstructive pulmonary disease, unspecified; E11.42 Type 2 diabetes mellitus with diabetic polyneuropathy; W22.8XXA Striking against or struck by other objects, initial encounter
CPT/HCPCS: 70450; 99284

== ENCOUNTER 2024-04-18 11:54 | Outpatient (CLI) | payer MEDICARE, MEDICAID, SELFPAY ==
--- NOTE | 2024-04-18 12:15 | CT_ITS ---
WS: [id number] CT chest w con* [id number] HISTORY: follow up TECHNIQUE: Axial imaging performed through the thorax. Coronal and sagittal reformats are submitted. All CT scans at [facility] use at least one of these dose optimization techniques: automated exposure control; mA and/or kV adjustment per patient size (includes targeted exams where dose is mat ched to clinical indication); or iterative reconstruction. CONTRAST: Omnipaque 350; 100 mL IV. DLP: 400.43 mGy.cm COMPARISON: 01/15/2024, 01/17/2022 and 03/06/2013 Lungs and central airway: Chronic emphysema. Reidentified is groundglass opacification in the medial RIGHT upper lobe. Chronic narrowing of the RIGHT upper lobe bronchus. There is a small amount of debr is in the proximal RIGHT upper lobe bronchus which has been present on multiple prior examinations wi thout progression. There is bronchial wall thickening and nodularity which is also stable. Pleura: Normal. No pleural effusion. Heart and pericardium: Normal size heart with no pericardial effusion. Mediastinum and rosalba: Small mediastinal and hilar lymph nodes are reidentified. Vessels: Mild atherosclerosis aorta. No aneurysm. Normal size pulmonary artery. Chest wall and lower neck: No soft tissue masses. Upper abdomen: Hepatic steatosis. No adrenal mass. Osseous structures: No destructive process. CT/CT chest w con* [id number] IMPRESSION: 1. Groundglass attenuation with bronchial nodularity in the medial RIGHT upper lobe persist but improved since 01/15/2024. 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 This has been stab le on multiple prior examinations. 2. Chronic emphysema. No new pulmonary nodule or mass. 3. No mediastinal or hilar adenopathy.
[2024-04-18 12:33] LABS: Blood Urea Nitrogen 16 mg/dL (8-23); Glomerular Filtration Rate 113.2 mL/min (90-130)
[2024-04-18] MEDS: iohexol 350 mg/mL 500 mL Btl (per mL) IV (12:40)
== END 2024-04-18 11:55 | disposition home or self-care (01) ==
LOC: RAD 11:55
PROVIDERS: PCP Nurse Practitioner Family; Visit Provider Nurse Practitioner Family
DX: J43.9 Emphysema, unspecified (principal); R93.89 Abnormal findings on diagnostic imaging of other specified body structures; Z87.891 Personal history of nicotine dependence
CPT/HCPCS: 71260; 82565; 84520; Q9967

== ENCOUNTER 2024-05-15 20:58 | Emergency (ER) | payer MEDICARE, MEDICAID, SELFPAY ==
[2024-05-15 21:05] VITALS: BP 112/68; PULSE 64; RESP 16; TEMP 36.8; O2SAT 97; BMI 24.0
--- NOTE | 2024-05-15 21:41 | ED_ITS ---
HPI - Wound/Laceration General: Chief Complaint: Wound/Laceration Stated Complaint: fell lac behind right ear Time Seen by Provider: 05/15/24 21:37 History of Present Illness: Patient was working on a house today and went through the subfloor when it collapsed under him. Patient appears nontoxic. Patient reports striking the right side of his posterior auricular area of the scalp/neck and causing a laceration. Patient also reports right anterior rib pain. Patient appears nont oxic. Patient appears no acute distress. Patient states his tetanus is only 2 years old. 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, 2018 History of knee surgery Right 2000 and 2009 Family History Other Dementia Diabetes Hypertension Stroke Denies family history of Bleeding disorder Cancer Social History Smoking and tobacco/nicotine status: current every day tobacco/nicotine user Second hand smoke exposure: Yes Alcohol intake: never Substance/Drug Use: never Adopted: No Caregiver/support person: No Lives independently: Yes Household members: spouse Housing: House Marital status: Number of children: 2 service: No Current occupational status: retired and disabled Do you think of yourself as: Straight/Heterosexual Current gender identity: Male Physical Exam Const: COMMON NORMALS: alert HENMT: COMMON NORMALS: normocephalic HEAD & SCALP: normocephalic Neck/C-Spine: COMMON NORMALS: full ROM Resp: COMMON NORMALS: normal respiratory effort Cardio: COMMON NORMALS: regular rate RATE: regular rate GI: COMMON NORMALS: Soft to palpation PALPATION: Yes Soft to palpation Extremity: COMMON NORMALS: full ROM Neuro: SENSORIUM/ORIENTATION: Yes alert Skin: TRAUMA: laceration (1 cm right postauricular area) stellate Procedures Laceration Laceration 1: Site: neck (Right postauricular area) Size (cm): 1 Description: stellate Depth: simple, single layer Local Anesthetic: lidocaine 1% Amount of anesthesia used (mL): 2 Pre-repair: wound explored and irrigated extensively Skin layer closed with: nylon Size (cm): 5-0 Number of sutures: 2 Course Vital Signs: Vital signs: Vital Signs Temperature 98.2 F 05/15/24 21:05 Pulse Rate 64 05/15/24 21:05 Respiratory Rate 16 05/15/24 21:05 Blood Pressure 112/68 05/15/24 21:05 Pulse Oximetry 97 05/15/24 21:05 Oxygen Delivery Me thod Room Air 05/15/24 21:05 MDM - Wound/Laceration Medical Decision Making Patient comes in for an injury to the right postauricular area. On exam patient has a 1 cm laceration to the postauricular area of the right ear. No crepitus is noted in the bone. Wound was irrigated and cleaned. Patient moves neck without difficulty. Patient is some anterior right rib pain. Differential diagnosis includes fracture, contusion, laceration. Wound was cleaned/irrigated and closed with 2 sutures. Patient tolerated well. X-rays of the ribs noted no fractures. Reviewed exam with patient with recommendation for treatment and follow-up. Patient reported understanding and agreed to plan. Patient recovered cephalexin for prophylaxis antibiotic treatment. XR interpretation done by ED provider, pending radiology final review Discharge Plan Discharge Patient Disposition: Home Clinical Impression: Fall through floor, initial encounter, Simple laceration of neck Contusion of rib on right side Qualifiers: Encounter type: initial encounter Qualified Code(s): S20.211A - Contusion of right front wall of thorax, initial encounter Condition: Stable Prescriptions: New cephalexin 500 mg capsule 500 mg PO BID 7 Days Qty: 14 0RF No Action albuterol sulfate [ProAir HFA] 90 mcg/actuation HFA aerosol inhaler 2 puff INHALATION QID Qty: 18 2RF Trelegy Ellipta 200-62.5-25 mcg blister with device 1 inh inhalation Q24H Qty: 60 11RF celecoxib [Celebrex] 100 mg capsule 100 mg PO BID 30 Days Qty: 60 0RF tizanidine 4 mg tablet 4 mg PO Q8H PRN (Reason: muscle spasticity) Qty: 90 0RF pregabalin [Lyrica] 75 mg capsule 75 mg PO BID 30 Days Qty: 60 0RF alpha lipoic acid 600 mg tablet 600 mg PO TID 90 Days Qty: 270 1RF ketorolac 10 mg tablet 10 mg PO QID PRN (Reason: pain) 5 Days Qty: 20 0RF Rx Instructions: do not take celebrex Discharge Orders: Discharge ED (Routine); Ordered 05/15/24 Ordered By: Mitch Cotto Referrals: Vangie Card NP [Primary Care Provider] - Discharge Diet: Usual diet Discharge Activity: Increase activity as tolerated Patient Instructions: Laceration (ED) Activity Restrictions/Additional Instructions: Use acetaminophen and/or ibuprofen as needed for pain. Use ice packs for further pain relief. Take oral antibiotic for prophylaxis of infection. Sutures need to come out and 7 days. Keep wound as dry as possible. Is very important keep the wound clean and dry for the next 48 hours. After that she can wash around the wound but try to dry it thoroughly and keep it moisture free. Follow-up with primary care in 1 week for suture removal. Return to ED for new concerns. Coding Level of Care Code ED Manager Part for Nagi Morris
--- NOTE | 2024-05-15 21:44 | XRR_ITS ---
PROCEDURE INFORMATION: Exam: XR Right Ribs with PA Chest Exam date and time: 05/15/2024 9:53 PM Age: 64 years old Clinical indication: Injury or trauma; Fall; Rib area; Blunt trauma (contusions or hematomas); Additional info: Fall injury TECHNIQUE: Imaging protocol: Radiologic exam of the right ribs with PA chest. Views: 3 views COMPARISON: CT chest w con* [id number] 04/18/2024 12:36 PM FINDINGS: Lungs: Clear, symmetrically inflated lungs. Pleural spaces: No pleural effusion. No pneumothorax. Heart/Mediastinum: Cardiac silhouette is normal in size for technique. Bones/joints: No displaced fractures are evident. XR/XR ribs RT mn 3V w [id number] IMPRESSION: No displaced rib fractures are seen, but there is limited plain film sensitivity for nondisplaced fractures. Regardless, there is no evidence of pneumothorax, pulmonary parenchymal contusion, or pleural effusion.
[2024-05-15] MEDS: cephALEXin 500 mg Capsule PO (22:21)
== END 2024-05-15 22:26 | disposition home or self-care (01) ==
PROVIDERS: Emergency Provider Nurse Practitioner Family; PCP Nurse Practitioner Family
DX: S20.211A Contusion of right front wall of thorax, initial encounter (principal); S11.91XA Laceration without foreign body of unspecified part of neck, initial encounter; W13.3XXA Fall through floor, initial encounter; J44.9 Chronic obstructive pulmonary disease, unspecified; E11.40 Type 2 diabetes mellitus with diabetic neuropathy, unspecified; Z72.0 Tobacco use
CPT/HCPCS: 12001; 71101; 99283

== ENCOUNTER → 2024-06-07 11:52 | Outpatient (BNVA) | payer MEDICARE, MEDICAID, SELFPAY | PROVIDERS: PCP Nurse Practitioner Family; Visit Provider Nurse Practitioner Family | DX: Z12.5 Encounter for screening for malignant neoplasm of prostate (principal); E11.65 Type 2 diabetes mellitus with hyperglycemia; R07.81 Pleurodynia; G62.9 Polyneuropathy, unspecified; J44.9 Chronic obstructive pulmonary disease, unspecified; G47.00 Insomnia, unspecified | CPT/HCPCS: 80053; 80061; 83036; 85025; G0103 ==

== ENCOUNTER → 2025-02-03 10:52 | Outpatient (BNVA) | payer MEDICARE, MEDICAID, SELFPAY | PROVIDERS: PCP Nurse Practitioner Family; Visit Provider Nurse Practitioner Family | DX: E11.65 Type 2 diabetes mellitus with hyperglycemia (principal); G62.9 Polyneuropathy, unspecified; U07.1 COVID-19 | CPT/HCPCS: 80053; 80061; 82306; 82607; 83036; 84443; 85025 ==

== ENCOUNTER → 2025-04-03 10:17 | Outpatient (BNVA) | payer MEDICARE, MEDICAID, SELFPAY | PROVIDERS: PCP Nurse Practitioner Family; Visit Provider Podiatrist Foot & Ankle Surgery | DX: E11.42 Type 2 diabetes mellitus with diabetic polyneuropathy (principal); L60.3 Nail dystrophy; G62.9 Polyneuropathy, unspecified | CPT/HCPCS: 99203 ==

== ENCOUNTER → 2025-10-02 10:16 | Outpatient (BNVA) | payer MEDICARE, MEDICAID, SELFPAY | PROVIDERS: PCP Nurse Practitioner Family; Visit Provider Podiatrist Foot & Ankle Surgery | DX: E11.8 Type 2 diabetes mellitus with unspecified complications (principal); L60.3 Nail dystrophy; G62.9 Polyneuropathy, unspecified; E11.42 Type 2 diabetes mellitus with diabetic polyneuropathy | CPT/HCPCS: 99213 ==